=== PATIENT | male | born 1975 | race Caucasian/White ===

== ENCOUNTER → 2017-04-06 | Outpatient (CLI) | payer MEDICAID ==
[~2017-04-06] MED LIST: FLEXERIL10 MG PO
[2017-04-06 15:52] LABS: LYMPH # 2.4 K/mm3 (0.7-4.5); LYMPH % 18.1 % (10-50)
--- NOTE | 2017-04-06 16:14 | RADIOLOGY REPORT PS360 ---
EXAM: THORACIC SPINE-3V SWIMMERS HISTORY: BACK PAIN COMPARISON: Lateral chest radiograph of 07/31/2008 FINDINGS: There is mild lower thoracic scoliosis convex left. There is severe thoracic kyphosis of the lower thoracic spine with multiple wedge compression changes from T7 to T12 with prominent anterior bridging osteophytes. This had a similar appearance on 07/31/2008. No acute fracture or dislocation is evident. Suspect bilateral renal calculi. IMPRESSION: Severe thoracic kyphosis with chronic wedge compression changes with bridging anterior osteophytes
--- NOTE | 2017-04-06 16:18 | RADIOLOGY REPORT PS360 ---
WRIST-3 VIEWS-RT HISTORY: WRIST PAIN ORDERING PHYSICIAN: ALEJANDRO COWART PATIENT AGE: 41 years COMPARISON: None FINDINGS: No fracture or dislocation. No lytic or blastic change. There is normal mineralization.. The joint spaces are well-preserved. No significant degenerative/arthritic changes. No erosive changes evident.. Small cystic area is present within the triquetrum at 3 mm and within the capitate 2 mm. These are nonspecific. IMPRESSION: 1. No acute finding. 2. Nonspecific benign-appearing cystic areas of the triquetrum and capitate
--- NOTE | 2017-04-06 16:19 | RADIOLOGY REPORT PS360 ---
KNEE-AP STANDING-BOTH KNEES CLINICAL INDICATION: KNEE PAIN ORDERING PHYSICIAN: ALEJANDRO COWART PATIENT AGE: 41 years COMPARISON: None FINDINGS: Standing AP views of both knees are unremarkable. The joint spaces are well-preserved. No obvious fracture or dislocation. No obvious lytic or blastic change. IMPRESSION: Negative bilateral standing AP views of the knees
[2017-04-06 16:31] LABS: BUN 13 mg/dL (7-18)
[2017-04-06 16:45] LABS: GFR (ESTIMATED) 75 ML/MIN (>60)
== END ==
LOC: RAD 14:42
PROVIDERS: Nurse Practitioner Family
DX: R53.83 Other fatigue (principal); M25.531 Pain in right wrist; M25.561 Pain in right knee; M54.6 Pain in thoracic spine